=== PATIENT | female | born 1965 ===

== ENCOUNTER 2017-10-26 22:39 | Emergency (ER) | payer BC ==
--- NOTE | 2017-10-26 23:20 | C.PDOC ---
History Of Present Illness 52 yo female, no priox hx, presetns with left sided cp. pt states pain started 9pm. pt cannot characterize her pain. pt travels into left arm. no fevers, no cough, no sob. no n/v/d, took asa at home. pain is now nearly resolved. Time Seen by Provider: 10/26/17 23:11 Chief Complaint (Nursing): Chest Pain Past Medical History Reviewed: Historical Data, Nursing Documentation, Vital Signs Vital Signs: Last Vital Signs Temp 98.3 F 10/27/17 04:36 Pulse 67 10/27/17 04:36 Resp 16 10/27/17 04:36 BP 94/62 L 10/27/17 04:36 Pulse Ox 100 10/27/17 04:36 Surgical History: Cholecystectomy (2011) Family History: States: Unknown Family Hx - Social History Hx Alcohol Use: No Hx Substance Use: No - Immunization History Hx Tetanus Toxoid Vaccination: No Hx Influenza Vaccination: No Hx Pneumococcal Vaccination: No Review Of Systems Cardiovascular: Positive for: Chest Pain Physical Exam - Physical Exam Appears: Well, No Acute Distress Skin: Normal Color, Warm, Dry Eye(s): bilateral: Normal Inspection, PERRL, EOMI Nose: Normal Throat: Normal Neck: Normal Cardiovascular: Rhythm Regular Respiratory: Normal Breath Sounds Gastrointestinal/Abdominal: Normal Exam, Soft, No Tenderness, No Guarding, No Rebound Back: Normal Inspection Extremity: Normal ROM Neurological/Psych: Oriented x3 ED Course And Treatment - Laboratory Results Result Diagrams: 10/26/17 23:41 10/26/17 23:41 O2 Sat by Pulse Oximetry: 99 Medical Decision Making Medical Decision Making: cp ro acs - ekg nsr [address] t wave changes. 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 Pain now has resolved 200: pt sleepign in nad. pendig 2nd trop 400 2nd trop neg. pain resolved. atypical pain, low heart score no sob symptoms acs pe less likely. pt asking for dc. Disposition - Disposition Referrals: Kash Chiu MD [Staff Provider] - Disposition: HOME/ ROUTINE Disposition Time: 04:00 Condition: STABLE Additional Instructions: please follow up with your doctor and specialist. return to er with worsening symptoms or concerns. Instructions: Chest Pain Forms: [employer] (Amharic) - Clinical Impression Clinical Impression: Chest pain
[2017-10-26 23:47] LABS: BASO # 0.1 K/uL (0.0-0.2); BASO % 0.6 % (0.0-2.0); EOS # 0.2 K/uL (0.0-0.7); EOS % 1.8 % (0.0-4.0); HEMOGLOBIN 10.7 g/dL (11.0-16.0); LYMPH % 44.2 % (20.0-40.0); MEAN CELL VOLUME 71.4 fL (81.0-99.0); MEAN CORPUSCULAR HEMOGLOBIN 23.4 pg (27.0-31.0); MEAN CORPUSCULAR HGB CONC 32.8 g/dL (33.0-37.0); MEAN PLATELET VOLUME 8.3 fL (7.2-11.7); MONO # 0.6 K/uL (0.0-0.8); MONO % 6.9 % (0.0-10.0); NEUT # 4.2 K/uL (1.8-7.0); NEUT % 46.5 % (50.0-75.0); NRBC % 0.1 % (0.0-2.0); RBC 4.56 Mil/uL (3.80-5.20); RED CELL DISTRIBUTION WIDTH 16.7 % (11.5-14.5); WHITE BLOOD COUNT 8.9 K/uL (4.8-10.8)
[2017-10-26 23:58] LABS: PROTHROMBIN TIME 11.1 SECONDS (9.7-12.2)
[2017-10-27 00:01] LABS: ALB/GLOB RATIO 1.2 (1.0-2.1); ALBUMIN 4.1 g/dL (3.5-5.0); ALT/SGPT 18 U/L (9-52); AST/SGOT 16 U/L (14-36); BLOOD UREA NITROGEN 10 mg/dL (7-17); CALCIUM 8.6 mg/dl (8.6-10.4); GFR AFRICAN-AMERICAN > 60; GFR NON-AFRICAN AMERICAN > 60
[2017-10-27 01:05] LABS: HCG,QUALITATIVE URINE NEGATIVE (NEGATIVE)
[2017-10-27 01:06] LABS: SQUAMOUS EPITHIAL 1 /hpf (0-5); URINE BILIRUBIN NEGATIVE (NEGATIVE); URINE CLARITY Clear (Clear); URINE COLOR Straw (YELLOW); URINE GLUCOSE (UA) NORMAL (Normal); URINE LEUKOCYTE ESTERASE NEG Leu/uL (Negative); URINE PROTEIN NEGATIVE (NEGATIVE); URINE UROBILINOGEN NORMAL mg/dL (0.2-1.0)
[2017-10-27 01:15] LABS: URINE BLOOD TRACE (NEGATIVE)
[2017-10-27 04:38] VITALS: BP 94/62; PULSE 67; RESP 16; TEMP 98.3
[2017-10-27 05:15] VITALS: O2SAT 99
--- NOTE | 2017-10-27 08:49 | RAD ---
Chest x-ray two views History: Chest pain. Comparison: None available. Findings: Diffuse increased interstitial lung markings. Biapical pleural thickening with upper lobe granulomatous changes. Mild venous congestion. Heart size within normal limits. Degenerative changes in the spine. Impression: Diffuse increased interstitial lung markings. Biapical pleural thickening with upper lobe granulomatous changes. Mild venous congestion. Heart size within normal limits.
--- NOTE | 2017-10-29 11:35 | CARD ---
APPROVED REPORT Date of service: 10/26/2017 EKG Measurement Heart [id number] <Conclusion> Normal sinus rhythm Normal ECG
== END 2017-10-27 04:40 | disposition home or self-care (01) ==
LOC: C.ER 22:39
DX: R07.9 Chest pain, unspecified (principal)